=== PATIENT | female | born 1960 | race Caucasian/White ===

== ENCOUNTER → 2018-01-22 | Day surgery (SDC) | payer OTHER ==
[~2018-01-22] VITALS: Ht 162.6 cm; Wt 130.6 kg
[~2018-01-22] MED LIST: ATORVASTATIN CA10 M1 PO; AUGMENTIN 875875 MG PO; LEVOTHYROXINE25 MCG PO; MECLIZINE HCL25 MG PO; METFORMIN HCL1000 M1 PO; PERCOCET 5-3251 EACH PO; SERTRALINE HCL100 MG PO; ZOLOFT 100 MG100 MG PO; ZYPREXA ZYDIS PO; ZYPREXA5 MG PO; [UNRECOGNIZED DRUG - CODE] PO
--- NOTE | 2018-01-22 12:48 | Operative Report ---
Operative/Inv Procedure Report Surgery Date: 01/22/18 Name of Procedure: Robotic-assisted Laparoscopic incarcerated ventral hernia repair with mesh Pre-Operative Diagnosis: Incarcerated ventral hernia Post-Operative Diagnosis: Same Estimated Blood Loss: scant Surgeon/[employer] Craftsman: Justice MOYA,Williams Castro/Benjamin JEFFERSON Anesthesia: general endotracheal tube Implants: 11 x 11 cm Parietex Progrip Operative/Procedure Note Note: After consent patient brought to the operative laid supine. Gen. anesthesia was obtained and her abdomen was prepped and draped. Periumbilical/ventral incarcerated hernia was able to be reduced after induction of general anesthesia. The skin and left upper quadrant was after local anesthesia and a transverse incision made sharply. We gained access the peritoneum using an 8 mm optical trocar. Pneumoperitoneum was achieved. 2, 8 mm ports placed in the epigastric and right upper quadrant regions after local anesthesia was instilled and under direct vision the camera. The robot was docked and targeted. Answers replaced and direct vision. I then broke scrub which the consult. There was a large periumbilical ventral hernia. Pre-peritoneal flap was created in the epigastric region with scissor cautery. The flap was then dissected down to encompass the hernia sac. Sac was circumvention dissected with cautery and reflected inferiorly. We then dissected down past the arcuate line. The defect wasn't closed primarily with running absorbable 0 V lock suture. Transverse diameter of the closure was 5 cm. The size of the preperitoneal pocket was approximately 11 cm laterally. Therefore chose to 1111 cm piece of Parietex program. It was trimmed to fit the defect marked for orientation and placed the perineal cavity. It was unraveled under the defect and self adhered to the fascia. The peritoneal flap was then closed with a running 20V lock suture. [place] were extracted and passed off the field. Pneumoperitoneum was released and Ports extracted. Incisions closed with 4-0 Vicryl. Sterile dressings were applied. Sponge and needle counts are correct CC: Tigist MOYA,Stephen
== END ==
LOC: STS 01:36
DX: K43.6 Other and unspecified ventral hernia with obstruction, without gangrene (principal); E03.9 Hypothyroidism, unspecified; E11.9 Type 2 diabetes mellitus without complications; Z79.84 Long term (current) use of oral hypoglycemic drugs; K44.9 Diaphragmatic hernia without obstruction or gangrene; J45.909 Unspecified asthma, uncomplicated; E66.01 Morbid (severe) obesity due to excess calories; Z68.42 Body mass index [BMI] 45.0-49.9, adult
CPT/HCPCS: 49653; 64488; S2900; C1781; J0131; J0690; J1100; J2250; J2405; J3490